=== PATIENT | female | born 1995 | race Hispanic/Latino ===

== ENCOUNTER 2020-09-20 14:21 | Emergency (ER) | payer OTHER ==
[~2020-09-20] VITALS: Ht 162.6 cm; Wt 64.5 kg
[2020-09-20] MEDS ORDERED: PYRI25TA2 PO (14:28)
[2020-09-20] MEDS ORDERED: UNIS25TA3 PO (14:28)
[2020-09-20] MEDS ORDERED: METOCLOPRAMIDE INJ 10MG/2ML VIAL (J2765 PER 1) IV ONE (15:15)
[2020-09-20] MEDS ORDERED: NS 1,000 ML IV ONE (15:15)
[2020-09-20 16:16] LABS: BASO % 0.4 % (0.0-1.0); EOS % 0.1 % (0.0-3.0); HEMATOCRIT 39.9 % (36.0-47.0); HEMOGLOBIN 13.5 g/dl (12.0-15.5); LYMPH # 1.7 10^3/uL (1.5-5.0); LYMPH % 16.7 % (24.0-44.0); MEAN CORPUSCULAR HGB CONC 33.8 g/dl (32.0-36.5); MEAN CORPUSCULAR VOLUME 91.7 fl (80.0-96.0); MONO # 0.5 10^3/uL (0.0-0.8); MONO % 4.7 % (2.0-8.0); NEUTROPHILS % 77.6 % (36.0-66.0); PLATELET COUNT, AUTOMATED 187 10^3/uL (150-450); RED BLOOD COUNT 4.35 10^6/uL (4.00-5.40); WHITE BLOOD COUNT 10.3 10^3/uL (4.0-10.0)
--- NOTE | 2020-09-20 16:22 | REP ---
INDICATION: 8 weeks, n/v COMPARISON: None. TECHNIQUE: Transabdominal 1st trimester obstetrical ultrasound with color Doppler evaluation. FINDINGS: Single live early intrauterine is appreciated. Gestational sac with yolk sac and pole identified. [place]-rump length of 18 mm corresponds to 8 weeks 3 days gestational age with estimated date of delivery 04/29/2021. heart rate equals 163 beats per minute. Small subchorionic hemorrhage is suggested measuring 21 x 15 x 12 mm Bilateral maternal ovaries are normal in appearance and vascularity without torsion. Right ovary measures 2.9 x 2.1 x 2.0 cm (RI 0.59) with corpus luteal cyst noted. Left ovary measures 2.7 x 1.5 x 1.5 cm (RI 0.49). IMPRESSION: Single live early intrauterine at 8 weeks 3 days gestational age. Complete anatomical assessment should be performed and 19-20 weeks. Small subchorionic hemorrhage noted. <Electronically signed by Efrain Denise > 09/20/20 [id number]
[2020-09-20 17:02] LABS: ALBUMIN 3.8 GM/DL (3.2-5.2); ALT/SGPT 96 U/L (12-78); BILIRUBIN,DIRECT 0.2 MG/DL (0.0-0.2); BILIRUBIN,TOTAL 0.4 MG/DL (0.2-1.0); BLOOD UREA NITROGEN 8 MG/DL (7-18); CALCIUM LEVEL 9.2 MG/DL (8.5-10.1); CARBON DIOXIDE LEVEL 24 MEQ/L (21-32); CHLORIDE LEVEL 105 MEQ/L (98-107); CREATININE FOR GFR 0.56 MG/DL (0.55-1.30); GLOMERULAR FILTRATION RATE > 60.0 (>60); GLUCOSE, FASTING 81 MG/DL (70-100); LIPASE 103 U/L (73-393); POTASSIUM SERUM 3.4 MEQ/L (3.5-5.1); SODIUM LEVEL 136 MEQ/L (136-145); TOTAL PROTEIN 7.9 GM/DL (6.4-8.2)
[2020-09-20 17:03] LABS: HCG, SERUM QUANTITATIVE 85006 MIU/ML
[2020-09-20] MEDS ORDERED: REGL10TA6 PO (17:16)
[2020-09-20 17:39] VITALS: BP 118/60
== END 2020-09-20 17:43 | disposition home or self-care (01) ==
LOC: M ED 14:21
DX: O21.9 Vomiting of pregnancy, unspecified (principal); O46.91 Antepartum hemorrhage, unspecified, first trimester; Z3A.08 8 weeks gestation of pregnancy
CPT/HCPCS: 36415; 76801; 80048; 80076; 81001; 83690; 84702; 85025; 87086; 96361; 96374; 99284; J2765

== ENCOUNTER → 2021-04-05 | Outpatient (CLI) | payer OTHER ==
[~2021-04-05] MED LIST: PYRI25TA2 PO; REGL10TA6 PO; UNIS25TA3 PO
== END ==
LOC: M LAB 16:06
PROVIDERS: ATTEND Registered Nurse Maternal Newborn
DX: L29.9 Pruritus, unspecified (principal)

== ENCOUNTER 2021-04-21 16:13 | Outpatient (CLI) | payer OTHER ==
[~2021-04-21] VITALS: Ht 162.6 cm; Wt 89.1 kg
[2021-04-21 16:36] VITALS: BP 131/72
[2021-04-21] MEDS ORDERED: PRENTAB9 PO (16:48)
[2021-04-21] MEDS ORDERED: HOME MED LIST COMPLETE! XX SCH (16:50)
--- NOTE | 2021-04-21 17:31 | IPNPDOC ---
Obstetrical Progress Note Date of Service Apr 21, 2021 Objective Vital Signs Date Time Temp Pulse Resp B/P (MAP) Pulse Ox O2 Delivery O2 Flow Rate FiO2 04/21/21 16:36 97.8 100 18 131/72 (91) Assessment and Plan Additional Comments Ms. Germain is a 25yo at 38+3 GBS negative who presents with dysuria. She reports [place] contractions that she reports are not very painful. She denied VB, LOF, decreased FM. She denied n/v/d, cp, sob, zimmerman, visual changes, f/c, vaginal dc. EXAM AAOx3, NAD non -tachy no increased wob abd gravid non-tender no CVA tenderness TAUS cephalic, MVP 6cm, +FM SVE 2/50/-3, patient comfortable NST CAT I reactive Ms. Germain is a 25yo at 38+3, GBS negative, cephalic, who presents with dysuria. She reports [place] contractions that she reports are not very painful. VS normal. NST reactive CAT I. SVE 2/50/-3 and patient is comfortable. UA was contaminated. Macrobid was prescribed. Educated on routine OB return precautions. Otherwise to follow up at next [facility]. IRVING PERDUE DO Apr 21, 2021 17:31
[2021-04-21 17:53] LABS: APPEARANCE, URINE HAZY (CLEAR); BACTERIA, URINE AUTO 1+ (NEGATIVE); BILIRUBIN, URINE AUTO NEGATIVE (NEGATIVE); BLOOD, URINE BLOOD NEGATIVE (NEGATIVE); COLOR, URINE YELLOW (YELLOW); GLUCOSE, URINE (UA) AUTO NEGATIVE (NEGATIVE); KETONE, URINE AUTO NEGATIVE (NEGATIVE); LEUKOCYTE ESTERASE, URINE AUTO TRACE (NEGATIVE); MUCUS, URINE SMALL (NEGATIVE); NITRITE, URINE AUTO NEGATIVE (NEGATIVE); PROTEIN, URINE AUTO NEGATIVE (NEGATIVE); RBC, URINE AUTO 0 /HPF (0-3); SPECIFIC GRAVITY URINE AUTO 1.013 (1.002-1.035); SQUAMOUS EPITHELIAL CELL UR AU 15 /HPF (0-6); UROBILINOGEN, URINE AUTO 0.2 mg/dL (0.0-2.0); WBC, URINE AUTO 1 /HPF (0-3)
[2021-04-21 18:10] VITALS: BP 138/67
== END 2021-04-21 18:16 | disposition home or self-care (01) ==
LOC: M LDO 16:13
PROVIDERS: ATTEND Advanced Practice Midwife
DX: O26.893 Other specified pregnancy related conditions, third trimester (principal); Z3A.38 38 weeks gestation of pregnancy; R30.0 Dysuria; O47.9 False labor, unspecified
CPT/HCPCS: 59025; 76815; 81001; 87086; G0378; G0463

== ENCOUNTER 2021-04-22 12:41 | Outpatient (CLI) | payer OTHER ==
[~2021-04-22] VITALS: Ht 162.6 cm; Wt 88.5 kg
[~2021-04-22 12:41] MED LIST changes: +PRENTAB9 PO
[2021-04-22 12:55] VITALS: BP 113/54
[2021-04-22] MEDS ORDERED: HOME MED LIST COMPLETE! XX SCH (13:00)
--- NOTE | 2021-04-22 13:54 | HPE ---
HISTORY AND PHYSICAL DATE OF ADMISSION: 04/22/2021 This lady is a 24-year-old, 2, para 1, LMP July 26, 2020, EDC is May 02, 2021 by ultrasound at 8 weeks, 3 days on September 20, 2020. Risk factors: She has anxiety, gestational anemia. We are ruling cholestasis in . Her past history is on March 28, 2019 at 38 weeks, spontaneous vaginal delivery, 7 lb, 10 oz . She comes in today complaining of contractions, irregular. She was in triage yesterday with the same complaint, was 2 cm and posterior. On review of the nonstress test, it is a category 1 strip, moderate variability. Baseline was normal. Accelerations were noted. Occasional contraction was noted. Symphysis-fundus height is 38, vertex presenting. Pelvic examination: The cervix is posterior, 60% effaced, 2 cm, minus 3 station with bulging membranes. No show and no ruptured membranes. The contraction pattern is not regular. She is not having any more contractions than she had yesterday. She was given Macrobid for a query urinary tract infection. The culture is pending. She presently takes Unisom, B6, Zofran, Atarax, Ursodiol and Pepcid for GI upset. She had recurring canker sores in her mouth but no active lesions noted at the present time. In summary we have a term gestation with uterine irritability, plans to keep her appointment on Saturday with [facility], discharged undelivered. Precautions were given. Her blood pressure is 113/54, respirations are 18, pulse 94 and temperature is 97.8. In reviewing her lab work from urine micro, it was a clean catch and culture is pending. The patient was discharged undelivered. All questions were answered. [facility]
== END 2021-04-22 13:25 | disposition home or self-care (01) ==
LOC: M LDO 12:41
PROVIDERS: ATTEND Obstetrics & Gynecology
DX: O26.893 Other specified pregnancy related conditions, third trimester (principal); N89.8 Other specified noninflammatory disorders of vagina; Z3A.36 36 weeks gestation of pregnancy; O99.013 Anemia complicating pregnancy, third trimester; O99.343 Other mental disorders complicating pregnancy, third trimester; F41.9 Anxiety disorder, unspecified
CPT/HCPCS: 59025; G0378; G0463

== ENCOUNTER 2021-04-23 02:17 | Inpatient (IN) | payer OTHER ==
[2021-04-23] VITALS (8 sets, daily range): BP systolic 101–151; BP diastolic 59–89
[~2021-04-23] VITALS: Ht 162.6 cm; Wt 88.1 kg
[2021-04-23] MEDS ORDERED: LACTATED RINGER'S 1000 ML IV ONE (02:40)
[2021-04-23] MEDS ORDERED: OXYTOCIN DRIP 30 UNITS in IV 1 EA IV PRN ×4 (02:40)
[2021-04-23] MEDS ORDERED: OXYTOCIN INJ 10 UNITS/ML VIAL (J2590) IV PRN (02:40)
[2021-04-23] MEDS ORDERED: METHYLERGONOVINE MALEATE 0.2 MG/ML VIAL (J2210) IM PRN ×2 (02:40→03:55)
[2021-04-23] MEDS ORDERED: LR 1,000 ML IV SCH ×2 (02:40→03:55)
[2021-04-23 02:58] LABS: HEMATOCRIT 38.2 % (36.0-47.0); HEMOGLOBIN 12.1 g/dl (12.0-15.5); MEAN CORPUSCULAR HEMOGLOBIN 28.4 pg (27.0-33.0); MEAN CORPUSCULAR HGB CONC 31.7 g/dl (32.0-36.5); MEAN CORPUSCULAR VOLUME 89.7 fl (80.0-96.0); PLATELET COUNT, AUTOMATED 151 10^3/uL (150-450); RED BLOOD COUNT 4.26 10^6/uL (4.00-5.40); WHITE BLOOD COUNT 8.9 10^3/uL (4.0-10.0)
[2021-04-23] MEDS ORDERED: FENTANYL 2MCG/ML ROPIVACAINE 0.2% IN 0.9% NACL 100ML IVBAG As Ordered ONE (03:03)
[2021-04-23 03:54] LABS: CORD GAS ABE V -5.3; CORD GAS HCO3 V 19.8 MEQ/L; CORD GAS O2 SAT V 81.5 %; CORD GAS PCO2 V 37.8 mmHg; CORD GAS PH V 7.338 UNITS; CORD GAS PO2 V 39.8 mmHg; CORD GAS SBC V 19.8 MEQ/L
[2021-04-23 03:55] LABS: CORD GAS ABE A -6.4; CORD GAS HCO3 A 19.7 MEQ/L; CORD GAS O2 SAT A 76.3 %; CORD GAS PCO2 A 41.3 mmHg; CORD GAS PH A 7.296 UNITS; CORD GAS PO2 A 34.4 mmHg; CORD GAS SBC A 18.8 MEQ/L
[2021-04-23] MEDS ORDERED: RHOGAM 300 MCG (1500 IU) INJ (J2790) IM SCH (03:55)
[2021-04-23] MEDS ORDERED: METHYLERGONOVINE MALEATE 0.2 MG TAB PO PRN (03:55)
[2021-04-23] MEDS ORDERED: OXYTOCIN INJ 10 UNITS/ML VIAL (J2590) IV ONE (03:55)
[2021-04-23] MEDS ORDERED: DIBUCAINE 1% OINTMENT 30GM TOP PRN (03:55)
[2021-04-23] MEDS ORDERED: ACETAMINOPHEN 500 MG TAB PO PRN (03:55)
[2021-04-23] MEDS ORDERED: MEASLES,MUMPS,RUBELLA VACCINE INJ (MMR-II) (90707) SC SCH (03:55)
[2021-04-23] MEDS ORDERED: ACETAMINOPHEN TAB 650MG DOSE (2X325MG) PO PRN (03:55)
[2021-04-23] MEDS ORDERED: OXYTOCIN DRIP 30 UNITS in IV 1 EA IV SCH ×4 (03:55)
[2021-04-23] MEDS ORDERED: ANUSOL HC CREAM 30GM TOP PRN (03:55)
[2021-04-23] MEDS ORDERED: DOCUSATE SODIUM 100MG CAPSULE PO PRN (03:55)
[2021-04-23] MEDS ORDERED: IBUPROFEN 600MG TAB PO PRN (03:55)
[2021-04-23] MEDS ORDERED: MOM 30ML SUSPENSION UDC PO PRN (03:55)
[2021-04-23] MEDS ORDERED: ePHEDrine SULFATE 25 MG/5 ML(5MG/ML) SYRINGE IV PRN (04:15)
--- NOTE | 2021-04-23 04:43 | HPEPDOC ---
Obstetrical History & Physical General Date of Admission Apr 23, 2021 at 02:35 Primary Care Physician: Aston Mondragon MD History of Present Illness Vital Signs Label Value Date Time Blood Pressure Assessment 151/72 (98) 04/23/21 0410 Blood Pressure Assessment 145/69 (94) 04/23/21 0356 Blood Pressure Assessment 129/89 (102) 04/23/21 0347 Blood Pressure Assessment 139/83 (101) 04/23/21 0254 Respiratory Rate 18 bpm 04/23/21 025 Patient Temperature 98.5 degrees F 04/23/21 0253 Temperature Source Temporal 04/23/21 0253 Patient Temperature 97.7 degrees F 04/23/21 0254 Temperature Source Temporal 04/23/21 0254 Pulse 83 04/23/21 025 Respiratory Rate 18 bpm 04/23/21 025 Pulse 107 04/23/21 0347 Pulse 90 04/23/21 0356 Pulse 90 04/23/21 0410 Item Value Date Time White Blood Count 8.9 10^3/uL 04/23/21 0250 Red Blood Count 4.26 10^6/uL 04/23/21 0250 Hemoglobin 12.1 g/dl 04/23/21 0250 Hematocrit 38.2 % 04/23/21 025 Mean Corpuscular Volume 89.7 fl 04/23/21 025 Mean Corpuscular Hemoglobin 28.4 pg 04/23/21 0250 Mean Corpuscular Hemoglobin Concent 31.7 g/dl L 04/23/21 0250 Red Cell Distribution Width 16.5 % H 04/23/21 0250 Platelet Count 151 10^3/uL 04/23/21 0250 25 YO AT 38.5 HISTORY SROM CLEAR LIQUOR IN ACTIVE LABOR Chief Complaint: Contractions, term, LOF, term (SROM AT 0100 AM CLEAR) Information Provided By: Patient Age: 25 : 2 Term: 1 Pre-term: 0 Abortions: 0 Livin Care Care: Good Care Number of Visits: 6 Dating Final EDC: May 02, 2021 Final EDC for Daily Update: May 02, 2021 LMP: Jul 26, 2020 1st Trimester Date: Sep 20, 2020 Weeks + Days: 8.3 Estimated Date of Confinement: May 02, 2021 EGA at Admission: 38.5 Antepartum Course Diagnos(e)s ACTIVE LABOR AT TERM Height (inches): 64 Pre- weight (lbs.): 146 Admission Weight (lbs.): 194 Change in Weight (lbs.): 48 Past Medical History Past Obstetrical History : Past Obstetrical History: Multigravida Date of Delivery: Mar 28, 2019 Gestation: 38 Type of Delivery: Spontaneous Vaginal Del. Sex of : Female Weight of (grams): 3458.6 Complications: No Past Medical History Medical History NON CONTRIBUTORY Surgical History: [place]one teeth Family History Significant Family History: Cancer, Hypertension, Hyperlipidemia Family History FATHER HYPERTENSION,TYPE 2 DIABETES,CHOLESTEROL GRANDMERE DM [place]AND [place] PANCREATIC CANCER Social History Social history NON SMOKER NO ETOH NO VAPING NO RECREATIONAL DRUGS Marital Status: Family situation: Spouse/partner home Psychosocial History: No pertinent psych hx * Smoker: non-smoker Alcohol: Denies Drugs: denies Abuse Violence Screening Have you been hit/kicked/slapp: No Have you been sexually assault: No Imunizations Tdap status: current Influenza Status: current Allergies Coded Allergies: No Known Allergies (Unverified , 04/21/21) Medications Scheduled No.137/Iron/Folic Acd ( Vitamin Tablet) 1 Each Tablet, 1 TAB PO DAILY Physical Examination Physical Examination GENERAL: Alert and oriented times three. BREAST: . ABDOMEN: Gravid and non-tender to touch. FETUS: Is vertex (VTX) by sterile vaginal examination (SVE), fetus is vertex (VTX) by Patric. HEART RATE: Regular rate and rhythm. LUNGS: Clear to auscultation (CTA). EXTREMITIES: No edema. No clonus. Deep tendon reflexes (DTRs) + . Other physical findings ATRAUMATIC PERRLA NECK FULL RANGE OF MOTION NO MURMURS CHEST CLEAR TO BASES NO RASHES LESIONS OR PURITIES, NO ARTHRALGIA NO MYALGIA NO SOB NO JOINT PAIN. ABDOMEN SF HEIGHT 38 WEEKS 4 QUADRANT BOWEL SOUNDS CATEGORY 1 STRIP NO NAUSEA VOMITING DIARRHEA CONSTIPATION NO URGENCY FREQUENCY Vital Signs/I&O Vital Signs Date Time Temp Pulse Resp B/P (MAP) Pulse Ox O2 Delivery O2 Flow Rate FiO2 04/23/21 04:10 90 151/72 (98) 04/23/21 02:54 97.7 18 I&O- Last 24 Hours up to 6 AM 04/23/21 06:00 Output Total 150 ml Balance -150 ml Laboratory Data 24H LABS Laboratory Tests 2 04/23/21 02:37: Serology Scanned Report Hepatitis B Testing 04/23/21 02:50: Nucleated Red Blood Cells % (auto) 0.0 04/23/21 03:32: Cord Arterial Blood pH 7.296, Cord Arterial Blood PCO2 41.3, Cord Arterial Blood PO2 34.4, Cord Arterial Blood HCO3 19.7, Cord Arterial Blood Total CO2 21.0, Cord Arterial Blood Base Excess -6.4, Cord Arterial Base Excess (Standard 18.8, Cord Arterial Bld Oxygen Saturation 76.3, Cord Venous Blood pH 7.338, Cord Jacob ous Blood PCO2 37.8, Cord Venous Blood PO2 39.8, Cord Venous Blood HCO3 19.8, Cord Venous Blood Total CO2 21.0, Cord Venous Base Excess (Actual) -5.3, Cord Venous Base Excess (Standard) 19.8, Cord Venous Blood Oxygen Saturation 81.5 CBC/BMP Laboratory Tests 04/23/21 02:50 Pertinent Laboratoy Data Blood Type: A+ RBC Antibody Screen: Negative HIV: Negative Hepatitis B: Negative Rapid Plasma Reagin: Nonreactive Rubella: Immune Varicella: Immune Chlamydia/Gonorrhea: Negative Group B Streptococcus: Negative Cystic Fibrosis: Negative Anatomy Ultrasound Ultrasound Date: Feb 03, 2021 Placenta Location: Anterior Normal Anatomy: Yes Placenta Previa: No Estimated Weight (grams): 1112 Steroid Therapy Steroid Therapy: No Vaginal Examination Dilation: 5 cm Effacement: 100% Station: -3 Cervical Consistency: Soft Cervical Position: Anterior Presentation: Cephalic presentation Assessment Variability: Moderate Accelerations: Present Decelerations: None Tocometer Contractions: Yes Frequency: regular, every 1-3 min. Duration: less than 60 seconds Strength: palpated as moderate Assessment/Plan Assessment 25 year-old (G 2 para (P)1 at 38.5 weeks by 9.2 -week ultrasound. Presents to Labor and Delivery (L&D) .SROM WITH CONTRACTIONS Plan Admit and orient. Fiscal Services Manager and consent. Diet: NPO Group B Streptococcus (GBS) [negative]. Labs and intravenous (IV) per unit protocol. Counseled on Pitocin and induction of labor (IOL). Lactated Ringers (LR): Bolus 1000 mL, then at 125 mL/hr. Anticipate [normal spontaneous delivery ()]. C-S as appropriate. Labor and Delivery Counseling REVIEW FOR CONSENT VAGINAL DELIVERY THROUGH VAGINA WITH POSSIBLE ASSISTANCE WITH FORCEPS OR VACUUM IN INDICATED MATERNAL OR INDICATIONS MAY NEED REPAIR OF LACERATIONS TO BLADDER BOWEL RECTUM OR URETHRAE AND VAGINA. EMERGENCY CS FOR MATERNA OR INDICATIONS TO BE DISCUSSED PRIOR TO SURGERY. MAY LEAD TO HEMORRHAGE INFECTION PERFORATION REOPERATION REMOTE BLOOD TRANSFUSION REMOTE HYSTERECTOMY ADMISSION TO NICU RE CEPHALOHEMATOMA BRUISING LACERATIONS EXPRESSED UNDERSTANDING SAFE TO PROCEED Aston Mondragon MD Apr 23, 2021 04:40
[2021-04-23] MEDS: PRENATAL VITAMINS CHEWABLE TABLET PO SCH (12:50)
[2021-04-24 05:54] VITALS: BP 110/58
--- NOTE | 2021-04-24 06:49 | IPN ---
PROGRESS NOTE DATE: 04/23/2021 SUBJECTIVE: This patient requested circumcision of her male infant. After discussing risks and benefits of circumcision, the medical, the nonmedical indications, the penile block and aftercare, expressed understanding of penile block aftercare and bleeding, signed the consent form. All questions were answered. Twenty minute discussion. We await clearance by the evaporator operator molasses.
--- NOTE | 2021-04-24 07:09 | IPN ---
PROGRESS NOTE DATE: 04/24/2021 Postoperative day #1. SUBJECTIVE: A 25-year-old 2 now para 2 admitted in labor with SROM at 38 and 5 weeks, spontaneous vaginal delivery, male infant, 7 pounds, 15 ounces, 3610 grams, Apgars 9 and 9 at 1 and 5 minutes respectively. Arterial pH is 7.29, base excess -6.4. Venous pH 7.33, base excess -5.3. On her first day we discussed phlebitis, cystitis, mastitis, endometritis, and cellulitis, diet, exercise, pain management, perineal, breast and wound care. OBJECTIVE: Blood pressure is 110/58, respirations are 18, pulse is 77, temperature is 97.0. The rest of the examination is unremarkable. Normocephalic, atraumatic. Neck with full range of motion. Pupils equal and reactive to light. Distal pulses are symmetric. No evidence of DVT, PE or superficial phlebitis. Chest is clear bilaterally at bases. No wheezes or rhonchi. No CVA tenderness. Abdomen is soft, four quadrant bowel sounds are noted. Perineum is intact. No rashes, lesions or pruritus. No arthralgias or myalgias. No complaint of joint pain. No urgency or frequency. Presently, the patient is day #1, breast-feeding and plans on discharge tomorrow. Medications picked up at [place]. OCPs will be discussed at her six week checkup. She has an appointment at [facility] at six weeks time. All questions were answered, a 20 minute discussion. Patient is progressing well. cc: [facility]
--- NOTE | 2021-04-24 08:04 | DN ---
DELIVERY NOTE DATE OF DELIVERY: 04/23/2021 TIME OF : GENDER: APGARS: LACERATIONS: ANESTHESIA: ESTIMATED BLOOD LOSS: COUNTS: DESCRIPTION OF DELIVERY: This lady is a 25-year-old 2, para 1 admitted with spontaneous labor and spontaneous rupture of membranes at 38 and 5 weeks of gestation. Precipitously delivered a live- male ; 7 pounds 15 ounces (3610 grams), Apgars of 9 and 9 at one and five minutes respectively. Arterial pH 7.29, base excess -6.4; venous PH 7.33, base excess -5.3. The placenta delivered spontaneously thereafter; three vessels with cord, membranes and tissues intact. She had a small perineal laceration which was oversewn in the usual fashion with a [id number]. The uterus contracted well down on Pitocin. Anterior, posterior and lateral garcia complete. Cervix was complete. Sphincter was tight. We have a term gestation that delivered a live- male , controlled bleeding. Patient and baby tolerated the procedure well. [facility]
[2021-04-24] MEDS ORDERED: INFLUENZA QUADRIVALENT PF VACCINE 0.5ML SYRINGE IM ONE (09:00)
[2021-04-24] MEDS ORDERED: IBUP-1022 PO (11:08)
[2021-04-24] MEDS ORDERED: ACET1TAB55 PO (11:08)
[2021-04-24] MEDS ORDERED: DOCU100C16 PO (11:08)
[2021-04-24] MEDS: PRENATAL VITAMINS CHEWABLE TABLET PO SCH (11:15)
[2021-04-24 11:44] LABS: HEMATOCRIT 34.5 % (36.0-47.0); HEMOGLOBIN 10.9 g/dl (12.0-15.5); MEAN CORPUSCULAR HEMOGLOBIN 28.5 pg (27.0-33.0); MEAN CORPUSCULAR HGB CONC 31.6 g/dl (32.0-36.5); MEAN CORPUSCULAR VOLUME 90.1 fl (80.0-96.0); PLATELET COUNT, AUTOMATED 134 10^3/uL (150-450); RED BLOOD COUNT 3.83 10^6/uL (4.00-5.40); WHITE BLOOD COUNT 9.9 10^3/uL (4.0-10.0)
== END 2021-04-24 13:00 | disposition home or self-care (01) | DRG 807 ==
LOC: M LDO 02:17 → M LDI 02:35 → M OBS 05:40
PROVIDERS: ADMIT Obstetrics & Gynecology; ATTEND Obstetrics & Gynecology
PROC: 10E0XZZ Delivery of Products of Conception, External Approach (ICD-10-PCS; principal; 2021-04-23)
PROC: 0HQ9XZZ Repair Perineum Skin, External Approach (ICD-10-PCS; 2021-04-23)
DX: O70.0 First degree perineal laceration during delivery (principal); Z37.0 Single live birth; Z3A.38 38 weeks gestation of pregnancy

== ENCOUNTER → 2023-02-15 | Outpatient (REF) | payer OTHER ==
[~2023-02-15] MED LIST changes: +ACET1TAB55 PO; +DOCU100C16 PO; +IBUP-1022 PO
== END ==
LOC: M LAB REF 11:12
PROVIDERS: ATTEND Nurse Practitioner Family
DX: R30.0 Dysuria (principal)